=== PATIENT | female | born 1955 | race Caucasian/White ===

== ENCOUNTER → 2017-10-03 13:10 | Outpatient (CLI) | payer OTHER, SELFPAY ==
--- NOTE | 2017-10-03 | DI.MRI.S_ITS ---
PROCEDURE: MR FOOT RT WO CON INDICATIONS: PAIN OF RIGHT GREAT TOE TECHNIQUE: Noncontrast sagittal T1 spin echo and T2 fast spin echo with fat saturation, long-axis T1 spin echo and T2 fast spin echo with fat saturation, short-axis T1 spin echo and T2 fast spin echo with fat saturation through the forefoot. COMPARISON: [facility], CR, XR FOOT 3+ VIEWS RIGHT, 05/26/2017, 11:08. [facility] Outside Film, RG, TOE(S) MIN 2VW, 04/19/2017, 12:26. FINDINGS: Image quality: Diagnostic. Bones and joints: There is no acute fracture, dislocation, or suspicious osseous lesion of the right midfoot and forefoot. There are moderate degenerative changes noted involving the 1st metatarsophalangeal joint with associated mild to moderate hallux valgus deformity. Additional mild to moderate degenerative changes are evident involving the remainder of the forefoot joints. There is prominent marrow edema evident involving the lateral cuneiform. There are moderate degenerative changes noted involving the tarsonavicular joints. Mild to moderate degenerative changes of the tarsometatarsal joints are present. No significant joint effusions are identified. Soft tissues: No soft tissue masses or loculated fluid collections are identified. There is mild soft tissue edema overlying the lateral cuneiform. No ganglion cysts are evident. The Lisfranc ligament appears to be grossly intact. The flexor and extensor tendons of the foot are within normal limits. Small amount of fluid is contained within the intermetatarsal bursae between the 2nd/3rd and 3rd/4th metatarsal heads. No significant muscle atrophy is evident involving the intrinsic muscles of the foot. IMPRESSION: 1. Mild/moderate degenerative changes of the right midfoot and forefoot are most pronounced involving the tarsonavicular and 1st metatarsophalangeal joints. 2. Prominent marrow edema involving the lateral cuneiform may be degenerative. However, bone contusion is difficult to exclude. 3. Fluid within the intermetatarsal bursae between the 2nd/3rd and 3rd/4th toes may represent bursitis. Please correct clinically. Dictated by: Abdirahman Alicia M.D. on 10/03/2017 at 16:36 Approved by: Abdriahman Alicia M.D. on 10/03/2017 at 16:43
== END ==
PROVIDERS: Family Provider Specialist; PCP Specialist; Visit Provider Podiatrist
DX: M79.674 Pain in right toe(s) (principal); M19.071 Primary osteoarthritis, right ankle and foot
CPT/HCPCS: 73718

== ENCOUNTER → 2018-12-16 13:43 | Outpatient (CLI) | payer OTHER, SELFPAY ==
--- NOTE | 2018-12-16 13:52 | DI.MRI.S_ITS ---
PROCEDURE: MR CERVICAL SPINE WO CON INDICATIONS: neck pains TECHNIQUE: Noncontrast sagittal T1 spin echo and T2 fast spin echo, sagittal STIR, foraminal oblique sagittal T2 fast spin echo, and axial gradient echo or T2 fast spin echo through the cervical spine. COMPARISON: None. FINDINGS: Image quality: Excellent. Alignment and Curvature: There is loss of normal cervical lordosis. Bone Marrow: Marrow demonstrates normal overall signal. There is mild reactive signal within the endplates adjacent to the C3-C4, C4-C5, C5-C6, and C6-C7 intervertebral discs. Spinal Cord: Visualized spinal cord has normal size and signal. No cerebellar tonsillar herniation. Paraspinous Soft Tissues: No paravertebral masses. Prevertebral soft tissues are normal in thickness. C2-C3: Moderate disc desiccation. Mild diffuse disc bulge. Mild facet and uncovertebral hypertrophy. Mild canal stenosis. Mild bilateral foraminal stenosis. C3-C4: Moderate disc desiccation. Small central protrusion. Mild facet and uncovertebral hypertrophy bilaterally. Mild canal stenosis. Mild right greater than left foraminal stenosis. C4-C5: Moderate disc height loss and desiccation. Mild diffuse disc bulge with superimposed left paracentral protrusion. Moderate right and mild left facet and uncovertebral hypertrophy. Moderate to severe canal stenosis. Minimal left anterior cord flattening. Moderate right and mild left foraminal stenosis. C5-C6: Moderate disc height loss and desiccation. Moderate diffuse disc bulge. Moderate facet and uncovertebral hypertrophy bilaterally. Moderate to severe canal stenosis. Minimal anterior cord flattening. Moderate right and moderate to severe left foraminal stenosis. Mild compression of the left C6 nerve root within the neural foramen. C6-C7: Moderate disc height loss and desiccation. Mild diffuse disc bulge. Mild facet and uncovertebral hypertrophy bilaterally. Mild canal stenosis. Mild bilateral foraminal stenosis. C7-T1: Moderate disc desiccation. No significant canal, nor foraminal stenosis. IMPRESSION: 1. Multilevel degenerative disc and facet disease, as well as uncovertebral hypertrophy. 2. Multilevel canal stenoses, with associated cord flattening at C4-C5 and C5-C6. 3. Multilevel foraminal stenoses, worst at C5-C6 on the left where there is associated intraforaminal neural compression. Recommend correlation with clinical symptoms to ascertain relevance of this finding. Dictated by: Blue Phillips M.D. on 12/18/2018 at 9:06 Approved by: Blue Phillips M.D. on 12/18/2018 at 9:17
== END ==
PROVIDERS: PCP Specialist; Visit Provider Psychiatry & Neurology Neurology
DX: M50.31 Other cervical disc degeneration, high cervical region (principal); M48.02 Spinal stenosis, cervical region
CPT/HCPCS: 72141

== ENCOUNTER → 2024-09-26 11:06 | Outpatient (CLI) | payer MEDICARE, OTHER, SELFPAY ==
--- NOTE | 2024-09-26 11:08 | DI.US.S_ITS ---
MM diagnostic mammo implant BI, US breast LT limited: 09/26/2024 BI-RADS: 2 CLINICAL: 69-year old female for bilateral diagnostic mammogram and left diagnostic breast ultrasound. Tyrer-Cuzick lifetime risk of 2.8%. No personal or first- degree family history of breast cancer. The patient reports pain (less than 1 month) in the left breast. The patient has bilateral implants. PRIOR EXAMS 08/2022, 05/2023, 04/2018 [facility]. MAMMOGRAPHY TECHNIQUE: 2D and 3D (tomosynthesis) digital mammographic views obtained, with additional images as needed for full coverage. Current study was also evaluated with a Computer Aided Detection (CAD) system. ULTRASOUND TECHNIQUE TARGETED Left Breast Ultrasound: Real-time ultrasound exam was performed focused to area of clinical and/or imaging concern. DENSITY A. The breasts are almost entirely fatty. IMPLANTS Right: There is a ruptured, saline implant of uncertain placement. Implant(s) not fully evaluated as a part of this study. Left: There is a probably-ruptured, retropectoral, saline implant. MAMMOGRAPHY FINDINGS Right: Ruptured saline implant of uncertain placement on the right. There are no suspicious masses, calcifications, or other findings in the breast. Known implant rupture since 2023. Left No suspicious mass, calcification or other finding. Probably-ruptured saline implant on the left. ULTRASOUND FINDINGS Left: Outer at 3:00, 10 cm from nipple: No suspicious sonographic finding with typically benign findings noted. Indentation in saline implant wall with small amount of overlying free fluid. Correlates with mammographic appearance, pain, and is highly suspicious for rupture. IMPRESSION: Left * There is a benign explanation for diffuse left breast pain- probable implant rupture. No further imaging follow up needed. Bilateral * No evidence of malignancy with benign findings. RECOMMENDATIONS Bilateral * Referral to plastic surgeon. Referral appointment to be scheduled as soon as possible. * Annual screening mammography in one year. COMMENTS: Findings and recommendations were conveyed to the patient during today's evaluation. OVERALL ASSESSMENT CATEGORY BI-RADS-2: Benign. [employer] recommends annual screening mammography beginning at age 40 for women with average risk of breast cancer. ELECTRONICALLY SIGNED: Amanda Warner M.D. on 09/26/2024 at 01:06:15 PM PT Interpreting Station ID: [id number]
== END ==
PROVIDERS: PCP Specialist; Referring Provider Specialist; Visit Provider Specialist
DX: T85.43XA Leakage of breast prosthesis and implant, initial encounter (principal); N64.4 Mastodynia; R92.313 Mammographic fatty tissue density, bilateral breasts
CPT/HCPCS: 76642; 77066; G0279